=== PATIENT | male | born 1980 | race Caucasian/White ===

== ENCOUNTER 2016-03-23 11:25 | Emergency (ER) | payer MEDICARE ==
[~2016-03-23] VITALS: Ht 180.3 cm; Wt 97.3 kg
[2016-03-23] MEDS ORDERED: OMEPRAZOLE40 M1 PO (11:49)
[2016-03-23 13:09] LABS: ADD MIUA? YES; BILIRUBIN NEGATIVE; BLOOD LARGE; COLOR YELLOW ((YELLOW)); GLUCOSE (STRIP) NEGATIVE; KETONES NEGATIVE; LEUKOCYTES LARGE; NITRITE NEGATIVE; PROTEIN (STRIP) 30; SPECIFIC GRAVITY 1.023 (1.000-1.030)
[2016-03-23 13:23] LABS: WHITE BLOOD CELLS TNTC /HPF (0-5)
[2016-03-23 13:24] LABS: BACTERIA 1+ /HPF; CASTS NONE SEEN /LPF; CRYSTALS NONE SEEN; EPITHELIAL CELLS NONE SEEN /HPF; MUCUS NONE SEEN
[2016-03-23] MEDS ORDERED: KEFLEX500 MG PO (14:52)
[2016-03-23 15:07] VITALS: BP 128/78
[2016-03-24 12:46] LABS: CHLAMYDIA TRACHOMATIS NEGATIVE; NEISSERIA GONORRHOEAE NEGATIVE
== END 2016-03-23 15:15 | disposition home or self-care (01) ==
LOC: EXP 11:25 → EME 11:25 → EXP 15:15
PROVIDERS: Nurse Practitioner Family; Physician Assistant
DX: N50.811 Right testicular pain (principal); N39.0 Urinary tract infection, site not specified; R31.9 Hematuria, unspecified
CPT/HCPCS: 74176; 76870; 81003; 87086; 87491; 87591; 99281; 99283; J0696